=== PATIENT | female | born 1940 | race Caucasian/White ===

== ENCOUNTER 2019-03-31 17:39 | Emergency (ER) | payer BC ==
[~2019-03-31] VITALS: Ht 157.5 cm; Wt 70.8 kg
--- NOTE | 2019-03-31 17:50 | NUR ---
[id number] NEAR C/O DIZZINESS & NEAR SYNCOPAL EPISODE. BG 117. PATIENT VERBALIZES FEELING ANXIOUS. DENIES PAIN AT THIS TIME. NO DISTRESS NOTED. ATTACHED TO THE GAS CHARGER. KEPT COMFORTABLE. MD AT BEDSIDE FOR EVAL.
[2019-03-31] MEDS ORDERED: IV NS 0.9% 500 ML BAG IV ONE (18:00)
[2019-03-31 18:22] LABS: BASOPHILS % (AUTO) 0.3 % (0.0-2.0); EOSINOPHILS % (AUTO) 1.3 % (0.0-6.0); HEMATOCRIT 35 % (33-45); HEMOGLOBIN 11.6 g/dL (11.5-14.8); LYMPHOCYTES # (AUTO) 1.2 /CMM (0.8-4.8); LYMPHOCYTES % (AUTO) 23.5 % (20.0-44.0); MEAN CORPUSCULAR HGB CONC 34 g/dl (31.0-36.0); MEAN CORPUSCULAR VOLUME 94 fL (82-100); MONOCYTES # (AUTO) 0.3 /CMM (0.1-1.30); MONOCYTES % (AUTO) 5.5 % (2.0-12.0); NEUTROPHILS # (AUTO) 3.5 /CMM (1.8-8.9); NEUTROPHILS % (AUTO) 69.4 % (43.0-81.0); PLATELET COUNT (AUTO) 136 /CMM (150-450); RED BLOOD CELL COUNT(AUTO) 3.67 MIL/uL (4.0-5.2)
[2019-03-31] MEDS ORDERED: ASPI-1169 PO (18:23)
[2019-03-31] MEDS ORDERED: METO-356 PO (18:23)
[2019-03-31] MEDS ORDERED: CITA20TA16 PO (18:23)
[2019-03-31] MEDS ORDERED: ATOR10TA PO (18:23)
[2019-03-31] MEDS ORDERED: LOSA25TA27 PO (18:23)
[2019-03-31 18:28] LABS: CALCIUM, SERUM 8.3 mg/dL (8.5-10.1); CARBON DIOXIDE 29 mmol/L (21-32); CHLORIDE 107 mmol/L (98-107); CREATININE 0.9 mg/dL (0.6-1.3); GLUCOSE 100 mg/dL (74-106); POTASSIUM 4.4 mmol/L (3.5-5.1); SODIUM SERUM 143 mmol/L (136-145); UREA NITROGEN, BLOOD 13 mg/dL (7-18)
--- NOTE | 2019-03-31 18:57 | NUR ---
[facility] [phone].
--- NOTE | 2019-03-31 19:19 | NUR ---
PATIENT AA/OX4, IN NAD, VS STABLE. ENDORSED TO THOMPSON STRAUSS FOR NANCI.
[2019-03-31 19:32] VITALS: BP 119/52
--- NOTE | 2019-03-31 20:16 | NUR ---
IV removed. Catheter intact and site benign. Pressure and 4x4 applied to site. No bleeding noted.Patient discharged to home in stable condition. Written and verbal after care instructions given. Patient verbalizes understanding of instruction. PT AMBULATORY WITH STEADY GAIT.
== END 2019-03-31 20:18 | disposition home or self-care (01) ==
LOC: ER 17:43
DX: R53.1 Weakness (principal); F41.9 Anxiety disorder, unspecified; I10 Essential (primary) hypertension; I25.2 Old myocardial infarction; I45.10 Unspecified right bundle-branch block; F32.9 Major depressive disorder, single episode, unspecified; Z95.5 Presence of coronary angioplasty implant and graft; Z88.5 Allergy status to narcotic agent; Z60.2 Problems related to living alone; Z79.82 Long term (current) use of aspirin
CPT/HCPCS: 36415; 80048; 84484; 85025; 93005; 99284; J7040